=== PATIENT | male | born 1990 | race Caucasian/White ===

== ENCOUNTER → 2017-02-18 | Emergency (ER) | payer SELFPAY ==
[~2017-02-18] VITALS: Ht 180.3 cm; Wt 74.8 kg
[~2017-02-18] MED LIST: SULF1TAB35 PO
--- NOTE | 2017-02-18 15:55 | ED Upper Extremity ---
General Chief Complaint: Upper Extremity Stated Complaint: L WRIST ISSUE Nursing Triage Note: LIMITED FUNCTION TO L WRIST/HAND ONSET UPON WAKING YESTERDAY. DENIES RECENT INJURY. Nursing Sepsis Screen: No Definite Risk Source: patient Exam Limitations: no limitations History of Present Illness Time seen by provider: 15:51 Initial Comments To ER with limited function to left hand and thumb that he first noticed upon awakening yesterday. No injury. He did have stitches placed in this region several months ago following a deep laceration. There were 3 deep sutures and 3 external sutures. He's had no problems with this until now. He has no pain but he does report some numbness 30 on the radial side of the wrist extending distally and inability to extend the hand at the wrist. Flexion functions remain intact Onset: yesterday Severity: moderate Pain/Injury Location: left wrist, left hand Method of Injury: unknown Allergies and Home Medications Allergies Coded Allergies: No Known Allergies (Unverified Allergy, Mild, 06/16/09) Home Medications Sulfamethoxazole/Trimethoprim 1 Each Tablet, 1 EACH PO BID, #20 Ref 0 FOR INFECTION Prescribed by: TONIA LYNNE on 06/16/09 1900 Constitutional: see HPI EENTM: see HPI Respiratory: no symptoms reported Cardiovascular: no symptoms reported Genitourinary: no symptoms reported Musculoskeletal: see HPI Skin: see HPI Psychiatric/Neurological: No Symptoms Reported Past Akanyot-Uuytqi-Xtkubh Hx Patient Social History Alcohol Use: Rarely Uses Drug of Choice: OPIATES Smoking Status: Current Everyday Smoker Recent Foreign Travel: No Contact w/Someone Who Travel: No Recent Infectious Disease Expo: No Physical Exam Vital Signs Vital Sign - Last 12Hours 02/18/17 15:41 Temp 97.8 Pulse 78 Resp 16 B/P (MAP) 156/105 Pulse Ox 97 Capillary Refill : Less Than 3 Seconds General Appearance: WD/WN, no apparent distress HEENT: PERRL/EOMI, normal ENT inspection Neck: non-tender, full range of motion Respiratory: no respiratory distress, no accessory muscle use Gastrointestinal: normal bowel sounds, non tender Shoulder: normal inspection, non-tender Elbow/Forearm: normal inspection, non-tender, Left Wrist: Yes normal inspection (healed scar over the radial side of the wrist. He complains of paresthesias/numbness from the radial side of the wrist distally affecting the thumb and pointer finger. He cannot extend the hand at the wrist however he is able to fully flex all of the fingers with equal strength. He cannot extend the thumb but he can flex the thumb) Neurologic/Tendon: normal sensation, normal motor functions, normal tendon functions Neurologic/Psychiatric: alert, normal mood/affect, oriented x 3 Skin: normal color, warm/dry Progress/Results/Core Measures Results/Orders Vital Signs/I&O Vital Sign - Last 12Hours 02/18/17 15:41 Temp 97.8 Pulse 78 Resp 16 B/P (MAP) 156/105 Pulse Ox 97 Blood Pressure Mean: 122 Departure Communication Progress Notes Patient will be placed in a wrist splint Impression Impression: Primary Impression: De Quervain's tenosynovitis, left Disposition: 01 HOME, SELF-CARE Condition: Stable Departure-Patient Inst. Decision time for Depature: 15:53 Referrals: ALEXANDR PEREZ MD, DOUGLAS K MD (PCP/Family) Primary Care Physician NISHA CORONEL MD,SHARRI NAJERA,PEPE MANTILLA,PIERRE MOTT,LAWSON Roblero MD Patient Instructions: Common Wrist Injuries (DC), De Quervain's Tenosynovitis Add. Discharge Instructions: 1. Wear the splint until you follow up with orthopedics 2. Call in the orthopedic surgeons listed tomorrow to make an appointment to be seen 2. Anti-inflammatories like Naprosyn or ibuprofen which can be purchased over- the-counter 3. All discharge instructions reviewed with patient and/or family. Voiced understanding. TRINI MCDONALD SUPERVISOR RIDES Feb 18, 2017 15:55
[2017-02-18 16:00] VITALS: BP 156/105
== END ==
LOC: EDUNIT# 15:17 → ER 15:20
DX: M65.88 Other synovitis and tenosynovitis, other site (principal); F17.210 Nicotine dependence, cigarettes, uncomplicated
CPT/HCPCS: 99282

== ENCOUNTER 2019-10-14 06:10 | Emergency (ER) | payer SELFPAY ==
[~2019-10-14] VITALS: Ht 180 cm; Wt 79.2 kg
[2019-10-14] MEDS ORDERED: NS IV 1000 ML 1,000 ML IV SCH ×2 (06:24)
[2019-10-14] MEDS ORDERED: PANTOPRAZOLE 40 MG (PROTONIX) VIAL IV ONE (06:30)
[2019-10-14] MEDS ORDERED: metroNIDAZOLE 500MG/100ML IVPB 100 ML IV ONE (06:30)
[2019-10-14] MEDS ORDERED: cefTRIAXone FOR IV USE 1,000 MG in WATER (STERILE) FOR INJECTION 10 ML IV ONE (06:30)
[2019-10-14] MEDS ORDERED: KETOROLAC 30 MG/ML VIAL IVP ONE (06:30)
--- NOTE | 2019-10-14 06:36 | ED Abdominal Pain ---
General Chief Complaint: Abdominal/GI Problems Stated Complaint: RT UPPER ABD PAIN Nursing Triage Note: Pt ambulates to RM 6 with c/o RUQ pain that radiates to right side of back x 1.5 wks. Pt states he's taken protonix and pepto bismol without relief. Pt denies any urinary or bowel changes. Sepsis Screen: Possible Severe Sepsis Risk Source of Information: Patient Exam Limitations: No Limitations History of Present Illness Date Seen by Provider: Oct 14, 2019 Time Seen by Provider: 06:18 Initial Comments Arrives the ER by private conveyance with chief complaint of progressively worsening constant right upper quadrant abdominal pain that feels like pressure and we will worsen after eating, Pepcid or IV methamphetamines. His last use he says was about 2 days ago. He has had some subjective fevers and chills and no nausea. He does have some disequilibrium and feeling off balance lately. Last oral intake was about 2 hours ago. No diarrhea. He has a history of a right inguinal hernia repair and no other abdominal surgeries. He does not take any me dications routinely. He does not drink alcohol and denies a history of pancreatitis. Last oral intake was breakfast around 4:30 AM. Allergies and Home Medications Allergies Coded Allergies: No Known Allergies (Unverified Allergy, Mild, 06/16/09) Home Medications Sulfamethoxazole/Trimethoprim 1 Each Tablet, 1 EACH PO BID FOR INFECTION Prescribed by: TONIA LYNNE on 06/16/09 1900 Patient Home Medication List Home Medication List Reviewed: Yes Review of Systems Review of Systems Constitutional: chills; No diaphoresis; fever (subjective) EENTM: No Blurred Vision, No Double Vision Respiratory: Denies Cough, Denies Shortness of Air Cardiovascular: Denies Chest Pain, Denies Lightheadedness Gastrointestinal: Denies Constipated, Denies Diarrhea, Denies Nausea Genitourinary: Denies Burning, Denies Discharge Musculoskeletal: No back pain, No joint pain Skin: No pruritus, No rash Psychiatric/Neurological: Denies Headache, Denies Numbness Endocrine: Denies Flushing, Denies Increased Urine, Denies Unexplained Weight Gain, Denies Unexplaned Weight Loss All Other Systems Reviewed Negative Unless Noted: Yes Past Aaczbgh-Ugvdqf-Rgzsjm Hx Patient Social History Alcohol Use: Denies Use Recreational Drug Use: Yes Drug of Choice: OPIATES; methamphetamines, IV Smoking Status: Current Everyday Smoker Type Used: Cigarettes (one pack per day) Recent Foreign Travel: No Contact w/Someone Who Travel: No Recent Infectious Disease Expo: No Physical Exam Vital Signs Vital Signs - First Documented 10/14/19 06:18 Temp 37.3 Pulse 101 Resp 20 B/P (MAP) 134/96 (109) Pulse Ox 98 O2 Delivery Room Air Capillary Refill : Less Than 3 Seconds Height/Weight/BMI Height: 5'11.00" Weight: 165lbs. oz. 74.023281hi; 24.00 BMI Method:Stated General Appearance: WD/WN, mild distress HEENT: PERRL/EOMI, pharynx normal Neck: full range of motion, supple Respiratory: lungs clear, normal breath sounds, no respiratory distress, no accessory muscle use Cardiovascular: normal peripheral pulses, regular rate, rhythm Peripheral Pulses: 2+ Radial Pulses (R), 2+ Radial Pulses (L) Gastrointestinal: normal bowel sounds, tenderness (bilateral upper quadrants tender to palpation. Daily sign positive. Psoas sign positive, some mesenteric tenderness) Extremities: normal range of motion, non-tender, normal inspection, normal capillary refill Neurologic/Psychiatric: alert, oriented x 3 Skin: normal color, warm/dry Focused Exam Lactate Level 10/14/19 06:28: Lactic Acid Level 1.95 Lactic Acid Level Laboratory Tests Test 10/14/19 06:28 Lactic Acid Level 1.95 MMOL/L (0.50-2.00) Progress/Results/Core Measures Results/Orders Lab Results Laboratory Tests Test 10/14/19 06:28 Range/Units White Blood Count 6.0 4.3-11.0 10^3/uL Red Blood Count 5.01 4.35-5.85 10^6/uL Hemoglobin 16.2 13.3-17.7 G/DL Hematocrit 48 40-54 % Mean Corpuscular Volume 96 80-99 FL Mean Corpuscular Hemoglobin 32 25-34 PG Mean Corpuscular Hemoglobin Concent 34 32-36 G/DL Red Cell Distribution Width 13.2 10.0-14.5 % Platelet Count 233 130-400 10^3/uL Mean Platelet Volume 10.1 7.4-10.4 FL Neutrophils (%) (Auto) 59 42-75 % Lymphocytes (%) (Auto) 33 12-44 % Monocytes (%) (Auto) 6 0-12 % Eosinophils (%) (Auto) 2 0-10 % Basophils (%) (Auto) 0 0-10 % Neutrophils # (Auto) 3.6 1.8-7.8 X 10^3 Lymphocytes # (Auto) 2.0 1.0-4.0 X 10^3 Monocytes # (Auto) 0.3 0.0-1.0 X 10^3 Eosinophils # (Auto) 0.1 0.0-0.3 10^3/uL Basophils # (Auto) 0.0 0.0-0.1 10^3/uL Prothrombin Time 12.6 12.2-14.7 SEC INR Comment 0.9 0.8-1.4 Activated Partial Thromboplast Time 27 24-35 SEC Sodium Level 140 135-145 MMOL/L Potassium Level 4.1 3.6-5.0 MMOL/L Chloride Level 109 H 98-107 MMOL/L Carbon Dioxide Level 21 21-32 MMOL/L Anion Gap 10 5-14 MMOL/L Blood Urea Nitrogen 12 7-18 MG/DL Creatinine 1.18 0.60-1.30 MG/DL Estimat Glomerular Filtration Rate > 60 BUN/Creatinine Ratio 10 Glucose Level 75 70-105 MG/DL Lactic Acid Level 1.95 0.50-2.00 MMOL/L Calcium Level 9.0 8.5-10.1 MG/DL Corrected Calcium 8.8 8.5-10.1 MG/DL Total Bilirubin 0.5 0.1-1.0 MG/DL Aspartate Amino Transf (AST/SGOT) 16 5-34 U/L Alanine Aminotransferase (ALT/SGPT) 18 0-55 U/L Alkaline Phosphatase 54 40-136 U/L Total Creatine Kinase 126 30-200 U/L Total Protein 6.9 6.4-8.2 GM/DL Albumin 4.2 3.2-4.5 GM/DL Lipase 26 8-78 U/L My Orders Orders - FLOR PHILLIPS Cbc With Automated Diff (10/14/19 06:24) Comprehensive Metabolic Panel (10/14/19 06:24) Blood Culture (10/14/19 06:24) Sputum Culture (10/14/19 06:24) Urinalysis (10/14/19 06:24) Urine Culture (10/14/19 06:24) Protime With Inr (10/14/19 06:24) Partial Thromboplastin Time (10/14/19 06:24) Chest 1 View, Ap/Pa Only (10/14/19 06:24) Ed Iv/Invasive Line Start (10/14/19 06:24) Ed Iv/Invasive Line Start (10/14/19 06:24) Vital Signs Adult Sepsis Patie Q15M (10/14/19 06:24) O2 (10/14/19 06:24) Remove Rings In Anticipation O (10/14/19 06:24) Lactic Acid Analyzer (10/14/19 06:24) Ns Iv 1000 Ml (Sodium Chloride 0.9%) (10/14/19 06:24) Ceftriaxone For Iv Use (Rocephin For I (10/14/19 06:30) Metronidazole 500mg/100ml Ivpb (Flagyl 5 (10/14/19 06:30) Ed Iv/Invasive Line Start (10/14/19 06:24) Ns Iv 1000 Ml (Sodium Chloride 0.9%) (10/14/19 06:24) Creatine Kinase (10/14/19 06:24) Pantoprazole Injection (Protonix Injecti (10/14/19 06:30) Ketorolac Injection (Toradol Injection) (10/14/19 06:30) Lipase (10/14/19 06:36) Us Gallbladder 91583 (10/14/19 07:00) Lidocaine 2% Viscous 15 Ml (Xylocaine Vi (10/14/19 09:00) Antacid Suspension (Mylanta Suspension (10/14/19 09:00) Medications Given in ED Current Medications Medications Dose Ordered Sig/José Miguel Route Start Time Stop Time Status Last Admin Dose Admin Ceftriaxone Sodium 1000 mg/ Sterile Water 10 ml @ 200 mls/hr ONCE ONCE IV 10/14/19 06:30 10/14/19 06:32 DC 10/14/19 06:49 200 MLS/HR Ketorolac Tromethamine 30 mg ONCE ONCE IVP 10/14/19 06:30 10/14/19 06:32 DC 10/14/19 06:49 30 MG Metronidazole 100 ml @ 100 mls/hr ONCE ONCE IV 10/14/19 06:30 10/14/19 07:29 DC 10/14/19 06:52 100 MLS/HR Pantoprazole 40 mg ONCE ONCE IV 10/14/19 06:30 10/14/19 06:32 DC 10/14/19 06:49 40 MG Vital Signs/I&O 10/14/19 06:18 Temp 37.3 Pulse 101 Resp 20 B/P (MAP) 134/96 (109) Pulse Ox 98 O2 Delivery Room Air Blood Pressure Mean: 109 Progress Progress Note #1: Time: 06:35 Progress Note He is tachycardic so we'll obtain a septic workup in case she has no elevated white count thinking about possible biliary obstruction, gallbladder inflammation or infection, pancreatitis, gastritis/gastroenteritis. We'll give him some Protonix, Toradol, fluids 2 L which is more than 20 mL/kg and obtain CT imaging of the abdomen pelvis. Progress Note #2: Time: 08:56 Progress Note The patient's pain significantly improved with Toradol although he still having some ever present burning sensation. We'll give him a GI cocktail and if this helps we'll put him out on antacids and Carafate. Plan to send him to Dr. Garcia, general surgery for appropriate outpatient workup area Progress Note #3: Time: 09:09 Progress Note Patient experienced significant improvement from the GI cocktail. Plan to follow up with general surgery for further workup to include possible EGD or a HIDA scan etc. Diagnostic Imaging Diagonstic Imaging: Xray Plain Films/CT/US/NM/MRI: chest (1 view) Comments [facility], [place] NAME: LISSETT NUÑEZ [facility] REC#: [id number] PT STATUS: REG ER : 1990 PHYSICIAN: FLOR PHILLIPS MD ADMIT DATE: 10/14/19/ER Draft Date of Exam:10/14/19 CHEST 1 VIEW, AP/PA ONLY INDICATION: Right upper quadrant pain FINDINGS: The lungs are clear. The heart size and vascularity normal. There is no effusion or pneumothorax. No free air beneath the diaphragms. IMPRESSION: Negative Dictated on workstation # [id number] Dict: 10/14/1922 Trans: 10/14/19 0728 [id number] Interpreted by: VALENTINA GALVEZ Electronically signed by: Reviewed: Reviewed by Me Diagonstic Imaging: Ultrasound Plain Films/CT/US/NM/MRI: abdomen, pelvis Comments Crenated gallbladder without evidence of stone or ductal dilatation. Common bile duct 4 mm. No free fluid or evidence of cholecystitis. Reviewed: Reviewed by Me Departure Impression Primary Impression: Biliary colic Additional Impression: Gastritis Qualified Codes: K29.00 - Acute gastritis without bleeding Disposition: HOME, SELF-CARE Condition: Improved Departure-Patient Inst. Decision time for Depature: 09:09 Referrals: JONATHAN GARCIA MD,LOCAL PHYSICIAN (PCP) Primary Care Physician Patient Instructions: Gastritis (DC) Add. Discharge Instructions: Would like to call Dr. Garcia, general surgery and request a follow-up appointment sometime in the next 1-2 weeks. You can discuss with him appropriate workup for your abdominal pain. In the meanwhile you would see improvement on omeprazole 20 mg twice a day. For 2 weeks we will put you on Carafate 30 minutes before meals and at bedtime for a total of 4 times a day. This will help protect your stomach lining and decrease your pain. All discharge instructions reviewed with patient and/or family. Voiced understanding. Scripts Omeprazole (Omeprazole) 20 Mg Capsule.dr 20 MG PO BID for 30 Days, #60 CAP 0 Refills Prov: FLOR PHILLIPS 10/14/19 Sucralfate (Carafate) 1 Gm Tablet 1 GM PO QIDACHS for 14 Days, #56 TAB 0 Refills Prov: FLOR PHILLIPS 10/14/19 Copy Copies To 1: JONATHAN GARCIA MD, TITUS J Oct 14, 2019 06:36
[2019-10-14 06:49] LABS: BASOPHILS % (AUTO) 0 % (0-10); EOSINOPHILS # (AUTO) 0.1 10^3/uL (0.0-0.3); EOSINOPHILS % (AUTO) 2 % (0-10); HEMATOCRIT 48 % (40-54); HEMOGLOBIN 16.2 G/DL (13.3-17.7); LYMPHOCYTES % (AUTO) 33 % (12-44); MEAN CORPUSCULAR HEMOGLOBIN 32 PG (25-34); MEAN CORPUSCULAR HGB CONC 34 G/DL (32-36); MEAN CORPUSCULAR VOLUME 96 FL (80-99); MEAN PLATELET VOLUME 10.1 FL (7.4-10.4); MONOCYTES # (AUTO) 0.3 X 10^3 (0.0-1.0); MONOCYTES % (AUTO) 6 % (0-12); NEUTROPHILS # (AUTO) 3.6 X 10^3 (1.8-7.8); NEUTROPHILS % (AUTO) 59 % (42-75); PLATELET COUNT 233 10^3/uL (130-400); RED CELL DISTRIBUTION WIDTH 13.2 % (10.0-14.5)
[2019-10-14 07:05] LABS: INR 0.9 (0.8-1.4); PROTHROMBIN TIME PATIENT 12.6 SEC (12.2-14.7)
[2019-10-14 07:12] LABS: ALANINE AMINOTRANSFERASE 18 U/L (0-55); ALBUMIN 4.2 GM/DL (3.2-4.5); ALKALINE PHOSPHATASE 54 U/L (40-136); BILIRUBIN,TOTAL 0.5 MG/DL (0.1-1.0); BUN/CREATININE RATIO 10; CARBON DIOXIDE 21 MMOL/L (21-32); CHLORIDE 109 MMOL/L (98-107); CREATINE KINASE 126 U/L (30-200); CREATININE SERUM 1.18 MG/DL (0.60-1.30); GFR ESTIMATED > 60; GLUCOSE 75 MG/DL (70-105); LIPASE 26 U/L (8-78); POTASSIUM 4.1 MMOL/L (3.6-5.0); SODIUM 140 MMOL/L (135-145); TOTAL PROTEIN 6.9 GM/DL (6.4-8.2)
--- NOTE | 2019-10-14 07:29 | Diagnostic Imaging Report ---
INDICATION: Right upper quadrant pain FINDINGS: The lungs are clear. The heart size and vascularity normal. There is no effusion or pneumothorax. No free air beneath the diaphragms. IMPRESSION: Negative Dictated by: Dictated on workstation # [id number]
[2019-10-14] MEDS ORDERED: ANTACID SUSP 30 ML UDC (MYLANTA) PO ONE (09:00)
[2019-10-14] MEDS ORDERED: LIDOCAINE 2% VISCOUS 15 ML UDC PO ONE (09:00)
[2019-10-14] MEDS ORDERED: SUCR1TAB36 PO (09:09)
[2019-10-14] MEDS ORDERED: OMEP-280 PO (09:09)
--- NOTE | 2019-10-14 09:26 | Diagnostic Imaging Report ---
PROCEDURE: US Gallbladder. TECHNIQUE: Multiple real-time grayscale images were obtained over the right upper quadrant in various projections. INDICATION: Right upper abdominal pain. FINDINGS: Liver is normal in size. There is hepatopedal flow in the main portal vein. There is no biliary duct dilatation. Common bile duct measures 4 mm. There is no cholelithiasis. There is some gallbladder wall thickening to 4 mm though the gallbladder appears somewhat contracted as patient did eat earlier this morning. Pancreas not well seen due to bowel gas. The aorta is nonaneurysmal. IVC is patent. Right kidney is normal. There is no ascites. IMPRESSION: Essentially unremarkable right upper quadrant ultrasound Dictated by: Dictated on workstation # [id number]
[2019-10-14 09:27] VITALS: BP 134/96
== END 2019-10-14 09:18 | disposition home or self-care (01) ==
LOC: EDUNIT# 06:10 → ER 06:13
DX: K80.50 Calculus of bile duct without cholangitis or cholecystitis without obstruction (principal); K29.70 Gastritis, unspecified, without bleeding; F17.210 Nicotine dependence, cigarettes, uncomplicated
CPT/HCPCS: 36415; 71045; 76705; 80053; 82550; 83605; 83690; 85025; 85610; 85730; 87040; 96361; 96365; 96375